=== PATIENT | female | born 1945 | race Caucasian/White ===

== ENCOUNTER 2017-11-13 14:56 | Emergency (ER) | payer MEDICARE, BC ==
[~2017-11-13] VITALS: Ht 165.1 cm; Wt 104.3 kg
[~2017-11-13 14:56] MED LIST: ALENDRONATE SOD70 MG PO; ASPIR-TRIN325 MG PO; CELEXA 20 MG TA20 MG PO; COLACE 100 MG100 MG PO; HYDROCHLOROTHIA25 M2 PO; HYDROCODONE-AP1 EAC6 PO; IBUPROFEN 600600 M1 PO; LEVAQUIN 500 M500 MG PO; LIPITOR 20 MG T20 M1 PO; NEURONTIN 300300 M1 PO; NEXIUM40 MG PO; NORCO 5-325 TA1 EACH PO; OCUVITE EYE +1 EACH PO; OSTEO BI-FLEX1 EAC1 PO; OXYCODONE HCL 55 MG PO; PREDNISONE 20 M20 M1 PO; SINGULAIR 10 MG10 M1 PO; SYMBICORT160 MCG/4. INH; XANAX 0.5 MG0.5 M1 PO; XARELTO10 MG PO; XOPENEX HF1 UDINHALE INH; ZYRTEC10 M2 PO
[2017-11-13] MEDS ORDERED: ASPIR 8181 MG PO (15:05)
[2017-11-13] MEDS ORDERED: XANAX 0.5 MG0.5 M1 PO (17:53)
[2017-11-13] MEDS ORDERED: ACETAMINOPHEN-1 EAC1 PO (17:53)
[2017-11-13] MEDS ORDERED: ZOFRAN ODT4 MG PO (18:06)
[2017-11-13 18:10] VITALS: BP 138/68
== END 2017-11-13 18:11 | disposition home or self-care (01) ==
LOC: M.ERS 14:56
DX: S51.811A Laceration without foreign body of right forearm, initial encounter (principal); S00.83XA Contusion of other part of head, initial encounter; E78.5 Hyperlipidemia, unspecified; J44.9 Chronic obstructive pulmonary disease, unspecified; E66.9 Obesity, unspecified; Z68.38 Body mass index [BMI] 38.0-38.9, adult; Z88.1 Allergy status to other antibiotic agents; Z88.5 Allergy status to narcotic agent; W01.0XXA Fall on same level from slipping, tripping and stumbling without subsequent striking against object, initial encounter; Y93.89 Activity, other specified; Y92.89 Other specified places as the place of occurrence of the external cause; Y99.8 Other external cause status